=== PATIENT | male | born 1965 | race Caucasian/White ===

== ENCOUNTER 2017-08-07 22:35 | Inpatient (IN) | payer MEDICAID, SELFPAY ==
[2017-08-07 22:36] VITALS: BP 148/95; PULSE 106; RESP 18; TEMP 36.4; O2SAT 97; BMI 31.3
--- NOTE | 2017-08-07 22:59 | EKG12_ITS ---
Test Reason : CP Blood Pressure : / mmHG Vent. Rate : 106 BPM Atrial Rate : 106 BPM P-R Int : 132 ms QRS Dur : 078 ms QT Int : 358 ms P-R-T Axes : 065 068 030 degrees QTc Int : 475 ms Sinus tachycardia Otherwise normal ECG Confirmed by ALIREZA BELL, ERJI ([id number]), supervising editor trailer ERMELINDA CHAN ([id number]) on 08/11/2017 1:59:11 PM Referred By: Confirmed By:REJI LAY MD
[2017-08-07] MEDS: Ondansetron 4 MG/2 ML Vial IV (23:34)
[2017-08-07] MEDS: 0.9% Normal Saline 1,000 ML 1000 ML IV (23:34)
[2017-08-07] MEDS: LORazepam 2 MG/ML Syringe 1 MG IV (23:35)
[2017-08-07 23:37] LABS: Absolute Lymphocyte Count 1.67 X10^3/ul (0.83-4.51); Absolute Neutrophil Count 5.1 X10^3/uL (2.0-7.7); Basophil# 0.04 X10^3/uL; Basophil% 0.5 % (0-1); Eosinophil# 0.18 X10^3/uL; Eosinophils% 2.3 % (0-5); Hematocrit 34.8 % (40-54); Hemoglobin 10.7 g/dl (13.0-16.5); Lymphocyte # 1.67 X10^3/ul (4.0); Lymphocyte % 21.7 % (19-41); Mean Corp Hgb Conc 30.7 g/gl (32-36); Mean Corpuscular Hgb 25.1 pg (27.0-32.0); Mean Corpuscular Volume 81.7 fL (80-94); Mean Platelet Vol. 8.8 fl (6.2-12.0); Monocyte# 0.74 X10^3/uL; Monocyte% 9.6 % (0-10); Neutrophil # 5.07 X10^3/uL (2.7-7.7); Neutrophil % 65.8 % (47-70); Platelet Count 237 K/mm3 (150-450); RBC Distribution Width CV 19.6 % (11.6-14.6); RBC Distribution Width SD 57.8 fl (35.1-43.9); Red Blood Count 4.26 M/mm3 (4.6-6.2); White Blood Count 7.7 K/mm3 (4.4-11.0)
[2017-08-07 23:42] LABS: POSITIVE COUNT NO; POSITIVE DIFFERENTIAL NO; POSITIVE MORPHOLOGY NO
[2017-08-07 23:44] VITALS: BP 165/85; PULSE 87; RESP 20
[2017-08-07 23:49] LABS: International Normalized Ratio 1.4; Partial Thromboplast Time 32.7 Seconds (24.1-36.2); Prothrombin Time (Protime)PT. 17.1 SECONDS (11.7-14.9)
[2017-08-07 23:52] LABS: Bacteria 0 SEEN /hpf (None Seen); Color, Urine Yellow (Yellow); Glucose, Dipstick Normal (Normal); Ketone-Dipstick Negative (Negative); Leukocyte Esterase-Dipstick Negative /ul (Negative); Mucous, Urine 0 SEEN /hpf (<or=2+); Nitrite-Dipstick Negative (Negative); Occult Blood-Urine 10 /ul (Negative); Protein-Dipstick Negative (Negative); Specific Gravity, Urine 1.015 (1.002-1.030); Urine Bilirubin Dipstick Negative (Negative); Urine Clarity Clear (Clear); Urine Urobilinogen 1 mg/dl (Normal); White Blood Cells 0 SEEN /hpf (0-5)
[2017-08-07 23:59] LABS: Red Blood Cells-Urine 0-5 SEEN /hpf (0-5); Squamous Epithelial Cells - UA 0-5 SEEN /hpf (0-5)
[2017-08-08] VITALS (15 sets, daily range): BP systolic 121–157; BP diastolic 57–87; PULSE 67–87; RESP 15–18; TEMP 36.9–37.2; O2SAT 96–98; BMI 31.5
[2017-08-08 00:01] LABS: ALB/GLOB Ratio 0.7 RATIO (0.9-2.4); AST(SGOT) 83 U/L (15-37); Alanine Aminotransfer ALT/SGPT 41 U/L (16-61); Albumin, Serum 3.9 g/dL (3.2-5.0); Alkaline Phosphatase 149 U/L (45-117); Anion Gap 9 (5-15); BUN 7 mg/dL (7-18); BUN/Creat Ratio 6.2 RATIO (10-20); Calcium,Total 8.1 mg/dL (8.5-10.1); Chloride 107 mmol/L (98-107); Creatinine, Serum 1.12 mg/dL (0.70-1.30); EST Glomerular Filtration Rate 73 mL/min (>60); Est Glom Filt Rate - Afr Amer 88 mL/min (>60); Globulin 5.3 g/dL (2.2-4.2); Glucose 121 mg/dL (74-106); Potassium 3.9 mmol/L (3.5-5.1); Protein, Total 9.2 g/dL (6.4-8.2); Sodium Level 139 mmol/L (136-145)
--- NOTE | 2017-08-08 01:24 | PCM.HP.STD ---
Problem List (1) Alcohol abuse Status: Chronic (2) HTN (hypertension) Status: Chronic Qualifiers: Hypertension type: essential hypertension Qualified Code(s): I10 - Essential (primary) hypertension (3) Anemia Status: Chronic Qualifiers: Anemia type: iron deficiency Iron deficiency anemia type: unspecified iron deficiency Qualified Code(s): D50.9 - Iron deficiency anemia, unspecified (4) CL (cirrhosis of liver) Status: Chronic Qualifiers: Hepatic cirrhosis type: unspecified hepatic cirrhosis Ascites presence: without ascites Qualified Code(s): K74.60 - Unspecified cirrhosis of liver (5) Gastric ulcer Status: Chronic Qualifiers: Gastric ulcer chronicity: chronic Gastric ulcer complication status: unspecified whether hemorrhage or perforation present Qualified Code(s): K25.7 - Chronic gastric ulcer without hemorrhage or perforation (6) Insomnia Status: Chronic Qualifiers: Insomnia type: unspecified Qualified Code(s): G47.00 - Insomnia, unspecified (7) Atypical chest pain Status: Acute (8) Troponin level elevated Status: Acute (9) Alcohol withdrawal Status: Acute Qualifiers: Complication of substance-induced condition: uncomplicated Qualified Code(s): F10.230 - Alcohol dependence with withdrawal, uncomplicated History of Present Illness Date of Admission: 08/08/17 Chief Complaint: Buring in his chest, anxious, withdrawal symptoms. The patient is a 52 y/o M w/ PMHx: Obesity, EtOH Abuse (3 tall boys q HS), PUD versus Gastric Ulcer, Insomnia, Hypertension, Iron Deficiency Anemia, Vitamin B12 deficiency who presents to the [facility] ED on 08/08/17 with history of onset EtOH withdrawal symptoms with last intake 08/07/17 AM with nausea, tremors, agitation, tactile disturbances in addition to onset at ~ 8 pm on evening prior to ED presentation central chest burning sensation, heaviness w/ radiation to BL neck and BL UE regions with associated dyspnea, diaphoresis, nausea without emesis and also vague headache. In the ED patient noted symptom improvement in regard to his chest pain and following ativan 1 mg IV x 1 EtOH withdrawal symptoms also improved. In the ED work-up included T 97.5, HR 106, BP 148/95, RR 18, 97% on RA, CBC w/ WBC 7.7, Hgb 10.7, Plts 237 without shift, coags w/ PT 17.1 otherwise unremarkable, CMP w/ glucose 121, AST/ALT 83/41, Alk phos 149, trop 0.13, UA unremarkable, EKG w/ sinus tachycardia without acute evidence of ischemia. In the ED patient administered NS, zofran, ativan. Past Medical History Past Medical History (Chronic Problems): Chronic Problems Alcohol abuse (Chronic) HTN (hypertension) (Chronic) Anemia (Chronic) CL (cirrhosis of liver) (Chronic) Gastric ulcer (Chronic) Insomnia (Chronic) Allergies No Known Allergies Allergy (Verified 08/07/17 22:39) Home Medications: Ambulatory Orders Medication Instructions Recorded Lisinopril 20 mg PO DAILY 05/09/17 Activated Charcoal [Charcoal] 200 mg PO DAILY 08/07/17 Ferrous Sulfate 325 mg PO DAILY@0800 08/07/17 Cyanocobalamin [Vitamin B12] 1,000 mcg IM Q30D 08/08/17 Garlic 100 mg PO DAILY 08/08/17 Whitetail-3 Fatty Acids [Fish Oil] 500 mg PO DAILY 08/08/17 Surgical History: - - R pinky trauma w/ skin graft. Psychiatric History: No pertinent psych hx Lives: Spouse/ Significant Other Smoking Status: Never smoker Tobacco Use: Non-smoker Alcohol: Heavy - 3 tall boys q HS to help him sleep. Drugs: None Review of Systems Constitutional: Reports: Anorexia, Malaise, Weakness, Fatigue. Denies: Chills, Fever, Weight Change HEENT: Reports: Head Aches. Denies: Sinus Congestion, Sinus Drainage Cardiovascular: Reports: Chest Pain, Heaviness. Denies: Palpitations Respiratory: Denies: Cough, Shortness of breath at rest, Sputum production Gastrointestinal: Reports: Nausea. Denies: Abdominal Pain, Vomiting Genitourinary: Denies: Dysuria Musculoskeletal: Denies: Joint Pain, Joint Tenderness Skin: Denies: Rash, Wounds Neurological: Reports: Seizures. Denies: Focal weakness, Numbness, Tingling Psychiatric: Denies: Anxiety, Depression, Homicidal Ideations, Suicidal Ideations Hematologic/ Lymphatic: Reports: Anemia. Denies: Easy Bruising, Easy Bleeding VTE Information - Inpt Only VTE Present on Admission: No VTE Mechan Device Prophylaxis: SCD's VTE Pharm Prophylaxis ordered?: Yes Patient Problems: Active and Suspected Problems Atypical chest pain (Acute) Troponin level elevated (Acute) Alcohol withdrawal (Acute) Subjective: Seated upright in the ED bed, mildly agitated. Objective: Physical Examination: General: awake, alert, oriented x 3 and cooperative, seated upright in bed in no apparent distress. Skin: normal color, turgor, no icterus, cyanosis. HEENT: AT/NC, EOMI, PERRLA, dry MM, no carotid bruits or JVD noted. Lungs: CTA bilaterally, moderate effort, mild decrease BL bases, no rales, ronchi or wheezing. Heart: Regular rate and rhythm; no gallop, rub audible. Abdomen: soft, NTTP, ND, normal BS, + HM. Extremities: no cyanosis, clubbing, or edema. Neurological: patient awake, alert, oriented x 3; cognitive function intact; pupils equally reactive to light and accomodation; cranial nerves II-XII grossly normal, moving all 4 extremities, no focal deficits, mild tremor noted, strength moderately to severely globally decreased secondary to acute presentation. Psychiatric: affect appears mildly agitated, no acute evidence of depressive or anxiety feelings. - Physical Exam Vital Signs Temp Pulse Resp BP Pulse Ox 97.5 F L 87 20 H 165/85 H 97 08/07/17 22:36 08/07/17 23:44 08/07/17 23:44 08/07/17 23:44 08/07/17 22:36 Oxygen Delivery Method Room Air Weight: 212 lb Body Mass Index (BMI) 31.3 Laboratory Tests Past 24 Hrs 08/07/17 08/07/17 08/07/17 23:23 23:23 23:23 WBC 7.7 RBC 4.26 L Hgb 10.7 L Hct 34.8 L MCV 81.7 MCH 25.1 L MCHC 30.7 L RDW 19.6 H RDW Differential 57.8 H Plt Count 237 MPV 8.8 Immature Gran % (Auto) 0.100 Neut % (Auto) 65.8 Lymph % (Auto) 21.7 Lamoure % (Auto) 9.6 Eos % (Auto) 2.3 Baso % (Auto) 0.5 Absolute Neuts (auto) 5.1 Absolute Lymphs (auto) 1.67 Total Counted Not Reportable PT 17.1 H INR 1.4 APTT 32.7 Sodium 139 Potassium 3.9 Chloride 107 Carbon Dioxide 23.0 Anion Gap 9 BUN 7 Creatinine 1.12 Estim Creat Clear Calc 75.40 Est GFR (MDRD) Af Amer 88 Est GFR (MDRD) Non-Af 73 BUN/Creatinine Ratio 6.2 L Glucose 121 H Calcium 8.1 L Total Bilirubin 0.80 AST 83 H ALT 41 Alkaline Phosphatase 149 H Troponin I 0.13 H Total Protein 9.2 H Albumin 3.9 Globulin 5.3 H Albumin/Globulin Ratio 0.7 L Urine Color Urine Clarity Urine pH Ur Specific Wendell Urine Protein Urine Glucose (UA) Urine Ketones Urine Occult Blood Urine Nitrite Urine Bilirubin Urine Urobilinogen Ur Leukocyte Esterase Urine RBC Urine WBC Ur Squamous Epith Cells Urine Bacteria Urine Mucus Ethyl Alcohol 08/07/17 08/07/17 23:23 23:45 WBC RBC Hgb Hct MCV MCH MCHC RDW RDW Differential Plt Count MPV Immature Gran % (Auto) Neut % (Auto) Lymph % (Auto) Lamoure % (Auto) Eos % (Auto) Baso % (Auto) Absolute Neuts (auto) Absolute Lymphs (auto) Total Counted PT INR APTT Sodium Potassium Chloride Carbon Dioxide Anion Gap BUN Creatinine Estim Creat Clear Calc Est GFR (MDRD) Af Amer Est GFR (MDRD) Non-Af BUN/Creatinine Ratio Glucose Calcium Total Bilirubin AST ALT Alkaline Phosphatase Troponin I Total Protein Albumin Globulin Albumin/Globulin Ratio Urine Color Yellow Urine Clarity Clear Urine pH 6.0 Ur Specific Wendell 1.015 Urine Protein Negative Urine Glucose (UA) Normal Urine Ketones Negative Urine Occult Blood 10 H Urine Nitrite Negative Urine Bilirubin Negative Urine Urobilinogen 1 H Ur Leukocyte Esterase Negative Urine RBC 0-5 SEEN Urine WBC 0 SEEN Ur Squamous Epith Cells 0-5 SEEN Urine Bacteria 0 SEEN Urine Mucus 0 SEEN Ethyl Alcohol 11.0 Assessment/Plan Active and Suspected Problems Atypical chest pain (Acute) Troponin level elevated (Acute) Alcohol withdrawal (Acute) The patient is a 52 y/o M w/ PMHx: Obesity, EtOH Abuse (3 tall boys q HS), PUD versus Gastric Ulcer, Insomnia, Hypertension, Iron Deficiency Anemia, Vitamin B12 deficiency who presents to the [facility] ED on 08/08/17 with history of onset EtOH withdrawal symptoms with last intake 08/07/17 AM with nausea, tremors, agitation, tactile disturbances in addition to onset at ~ 8 pm on evening prior to ED presentation central chest burning sensation, heaviness w/ radiation to BL neck and BL UE regions with associated dyspnea, diaphoresis, nausea without emesis and also vague headache. (1) Chest Pain: EKG in ED SR without acute evidence of ischemia, CXR w/ no acute findings, initial trop elevated 0.10. Will admit to PCU, place on a monitored bed to assure no acute myocardial infarction with serial cardiac enzymes and EKGs. Will trend cardiac enzymes and if remain similar will plan to proceed with AM Nuclear stress testing; however, if increase further will plan Cardiology assessment. Add low dose coreg given HTN, add statin w/ AM FLP. ASA, NG, morphine. Mag pending. (2) Acute EtOH Withdrawal: Patient upon ED presentation noted interest in EtOH withdrawal treatment, last intake AM prior to day of presentation w/ noted usually 3 tall boys q HS secondary to his insomnia. Will urine for drug screen, will initiate and continue on [facility] service protocol with taper course of librium as needed Seroquel, Catapres, Bentyl, Vistaril, IV fluids, IV antiemetics, Tylenol as needed for pain. Once patient clinically improved and completion of taper nearing will plan [facility] assistance for transition to next level of rehabilitation care. Mag, phos pending. Maintain on CIWA protocol. (3) Elevated LFTs, ? Recent Dx Cirrhosis: Admission AST/ALT 83/41, pending hepatitis panel, liver US ordered, pending. (4) Hyperglycemia: Admission glucose 121, HgbA1c pending. (5) Insomnia: Notes the reason for his q HS notable ETOH intake history, as noted treating for acute withdrawal and qHS trazodone in addition to PRN seroquel. Will benefit from CM evaluation and [facility] to transition to outpatient counseling and psych evaluation. (6) Normocytic Anemia, Chronic: Notes recent evaluation per his PCP w/ confirmation Fe deficiency anemia as well as vitamin B 12 deficiency with recent start on supplementation. Will obtain additional folic acid level. (7) Hx ?PUD versus Gastric Ulcer: Notes history ~ 1 year prior ulcer, maintain on protonix and carafate added especially given baby ASA usage as noted. (8) Hypertension: Continue home regimen including lisinopril, add low-dose Coreg, PRN hydralazine. (9) GERD: Maintain on famotidine. (10) DVT prophylaxis: SCDs, Lovenox. Code Visit Inpatient E&M: 16275 Init Hosp L3
--- NOTE | 2017-08-08 01:51 | ED.VISSUMM ---
- ER Visit Summary Date of Service: 08/08/17 Chief Complaint: Shakiness and chest burning History of Present Illness: The patient is a 52 M who presents with chest burning and shakiness that began today. Patient states he has some burning sensation in the anterior chest. Patient also states he has some burning in his left arm. Patient states nothing seems to make this better or worse. Patient states he feels shaky tonight. Patient states he normally drinks 3 tall boys to help him sleep. Patient states his last drink was this morning. Patient admits to some nausea but denies any vomiting. Patient admits to subjective fevers. Patient denies any diarrhea. Patient states he was on Ambien in the past but stopped taking that. Patient states he now drinks 3 tall boys to help him sleep instead of taking Ambien. Physical Examination: Vital signs showed a mild tachycardia of 106. The remaining vital signs are stable. Patient is in no acute distress. Patient is afebrile. Oral mucosa is pink and moist. Neck is supple. Trachea is midline. Is no JVD or lymphadenopathy. Heart was regular and tachycardic. Lungs are clear and equal bilaterally. Abdomen soft. There is mild tenderness over the epigastric area. There is no rebound or guarding noted. Cranial nerves II through XII are intact. There are no focal motor or sensory deficits noted. Patient does have an anxious mood. The remaining physical exam is within normal limits. Test Results: EKG showed sinus tachycardia with a rate of 106. There are no acute ST or T-wave changes. There are no prior EKGs available for comparison. Serum alcohol level was 11. CBC showed a mild anemia with a hemoglobin of 10.7. Urinalysis was within normal limits. Comprehensive metabolic profile was essentially within normal limits. Troponin was indeterminate at 0.13. Emergency Department Course and Treatment: Patient was given IV fluids and Ativan here. Patient felt better on reevaluation patient's heart rate improved. Case was discussed with Dr. Grayson. She will admit the patient to her service. Patient understood and was agreeable with the plan. All questions were answered. Disposition: Admitted to the hospital Impression: Atypical chest pain, indeterminate troponin, alcohol withdrawal This note was generated with [employer] dictation software. It may contain incorrect words, spelling, and punctuation that were not noted in review of the chart prior to signing ED Disposition - Plan for ED Patient: Disposition: Acute [facility] Chief Complaint: General Illness Diagnosis: Atypical chest pain, Troponin level elevated, Alcohol withdrawal Referrals: Nestor Whitfield MD [Primary Care Provider] -
--- NOTE | 2017-08-08 01:58 | ED.DCSUM_ITS ---
- ER Visit Summary Date of Service: 08/08/17 Chief Complaint: Shakiness and chest burning History of Present Illness: The patient is a 52 M who presents with chest burning and shakiness that began today. Patient states he has some burning sensation in the anterior chest. Patient also states he has some burning in his left arm. Patient states nothing seems to make this better or worse. Patient states he feels shaky tonight. Patient states he normally drinks 3 tall boys to help him sleep. Patient states his last drink was this morning. Patient admits to some nausea but denies any vomiting. Patient admits to subjective fevers. Patient denies any diarrhea. Patient states he was on Ambien in the past but stopped taking that. Patient states he now drinks 3 tall boys to help him sleep instead of taking Ambien. Physical Examination: Vital signs showed a mild tachycardia of 106. The remaining vital signs are stable. Patient is in no acute distress. Patient is afebrile. Oral mucosa is pink and moist. Neck is supple. Trachea is midline. Is no JVD or lymphadenopathy. Heart was regular and tachycardic. Lungs are clear and equal bilaterally. Abdomen soft. There is mild tenderness over the epigastric area. There is no rebound or guarding noted. Cranial nerves II through XII are intact. There are no focal motor or sensory deficits noted. Patient does have an anxious mood. The remaining physical exam is within normal limits. Test Results: EKG showed sinus tachycardia with a rate of 106. There are no acute ST or T-wave changes. There are no prior EKGs available for comparison. Serum alcohol level was 11. CBC showed a mild anemia with a hemoglobin of 10.7. Urinalysis was within normal limits. Comprehensive metabolic profile was essentially within normal limits. Troponin was indeterminate at 0.13. Emergency Department Course and Treatment: Patient was given IV fluids and Ativan here. Patient felt better on reevaluation patient's heart rate improved. Case was discussed with Dr. Grayson. She will admit the patient to her service. Patient understood and was agreeable with the plan. All questions were answered. Disposition: Admitted to the hospital Impression: Atypical chest pain, indeterminate troponin, alcohol withdrawal This note was generated with [employer] dictation software. It may contain incorrect words, spelling, and punctuation that were not noted in review of the chart prior to signing ED Disposition - Plan for ED Patient: Disposition: Acute [facility] Chief Complaint: General Illness Diagnosis: Atypical chest pain, Troponin level elevated, Alcohol withdrawal Referrals: Nestor Whitfield MD [Primary Care Provider] -
[2017-08-08] MEDS: Lactated Ringers 1,000 ML 125 ML IV (03:23)
[2017-08-08] MEDS: LORazepam 1 MG Tablet 2 MG PO (03:39)
[2017-08-08] MEDS: Acetaminophen 500 MG Tablet PO (03:39)
[2017-08-08] MEDS: Ondansetron 4 MG/2 ML Vial IV (03:40)
[2017-08-08 03:53] LABS: Amphetamine Urine VISTA NEGATIVE (<1000 ng/mL); Barbiturate Urine VISTA NEGATIVE (< 200 ng/mL); Benzodiazepine Urine VISTA NEGATIVE (< 200 ng/mL); Cocaine Urine VISTA NEGATIVE (< 300 ng/mL); Ecstacy Urine VISTA NEGATIVE (< 500 ng/mL); Methadone Urine VISTA NEGATIVE (< 300 ng/mL); PCP Urine VISTA NEGATIVE (< 25 ng/mL); THC Urine VISTA POSITIVE (< 50 ng/mL); Vista UDS pH Range 6
[2017-08-08 04:04] LABS: Magnesium 2.3 mg/dL (1.6-2.6); Phosphorus 2.2 mg/dL (2.5-4.9)
[2017-08-08 04:09] LABS: ALB/GLOB Ratio 0.7 RATIO (0.9-2.4); AST(SGOT) 74 U/L (15-37); Alanine Aminotransfer ALT/SGPT 37 U/L (16-61); Albumin, Serum 3.5 g/dL (3.2-5.0); Alkaline Phosphatase 125 U/L (45-117); Anion Gap 8 (5-15); BUN 7 mg/dL (7-18); BUN/Creat Ratio 7.3 RATIO (10-20); Calcium,Total 7.9 mg/dL (8.5-10.1); Chloride 108 mmol/L (98-107); Cholesterol 149 mg/dL (200); Creatinine, Serum 0.96 mg/dL (0.70-1.30); EST Glomerular Filtration Rate 87 mL/min (>60); Est Glom Filt Rate - Afr Amer 105 mL/min (>60); Estimated Creatinine Clearance 87.97 ml/min; Globulin 4.7 g/dL (2.2-4.2); Glucose 104 mg/dL (74-106); High Density Lipoprotein 17 mg/dL; Potassium 3.8 mmol/L (3.5-5.1); Protein, Total 8.2 g/dL (6.4-8.2); Sodium Level 139 mmol/L (136-145); Triglycerides 215 mg/dL; Very Low Density Lipoprotein 43 mg/dL (5-40)
[2017-08-08 04:56] LABS: Hemoglobin A1c 6.3 % (4.2-6.3)
[2017-08-08] MEDS: 0.9% NaCl Peripheral Flush Adult/Peds IV (05:33)
[2017-08-08] MEDS: Aspirin E.C. 81 MG Tablet PO (05:34)
[2017-08-08] MEDS: Lisinopril 20 MG Tablet PO (05:34)
[2017-08-08 05:53] LABS: Absolute Lymphocyte Count 1.79 X10^3/ul (0.83-4.51); Absolute Neutrophil Count 5.2 X10^3/uL (2.0-7.7); Basophil# 0.04 X10^3/uL; Basophil% 0.5 % (0-1); Eosinophil# 0.18 X10^3/uL; Eosinophils% 2.3 % (0-5); Hematocrit 31.8 % (40-54); Hemoglobin 9.6 g/dl (13.0-16.5); Lymphocyte # 1.79 X10^3/ul (4.0); Mean Corp Hgb Conc 30.2 g/gl (32-36); Mean Corpuscular Hgb 24.9 pg (27.0-32.0); Mean Corpuscular Volume 82.6 fL (80-94); Monocyte# 0.57 X10^3/uL; Monocyte% 7.3 % (0-10); Neutrophil % 66.8 % (47-70); Platelet Count 211 K/mm3 (150-450); RBC Distribution Width CV 19.6 % (11.6-14.6); Red Blood Count 3.85 M/mm3 (4.6-6.2); White Blood Count 7.8 K/mm3 (4.4-11.0)
--- NOTE | 2017-08-08 05:55 | US_ITS ---
STUDY: ABDOMINAL ULTRASOUND - RIGHT UPPER QUADRANT REASON FOR VISIT: Male, 52 years old. Elevated LFTs. TECHNIQUE: Ultrasound evaluation of the right upper quadrant was performed with real-time and static armenta-scale imaging. TECHNICAL QUALITY: Adequate. COMPARISON: None. FINDINGS: Liver: The liver measures 18 cm. There is a heterogeneous echogenicity of the liver. The bile ducts are within normal limits. There is hepatic color flow. The direction of portal flow is hepatopetal. There is a hypoechoic region within the right hepatic lobe consistent with cyst measuring 9 x 7 x 7 mm. Gallbladder: Normal distended gallbladder. The gallbladder wall measures 4 mm. There is a negative sonographic Carroll's sign. There is no pericholecystic fluid. Anterior wall gallbladder polyp is present measuring 6 x 3 x 4 mm. Common Bile Duct (C.B.D.): The common bile duct measures 5 mm. Pancreas: Head and body are visualized however the tail is obscured by overlying gas. There is increased echogenicity of the pancreas. There is no demonstrated pancreatic mass or cyst. Right Kidney: Normal size of the right kidney. The right kidney measures 12.7 x 5.0 x 4.0 cm. Normal renal cortex. The right cortex measures 1.0 cm. There is no demonstrated renal mass or cyst. There is no right hydronephrosis. There is a focal hyperechoic region within the mid right kidney measuring 1.2 x 1.1 x 0.7 cm with nonobstructive nephrolith not excluded. US/Liver IMPRESSION: 1. Heterogeneous hepatomegaly with small right hepatic cyst. No evidence of focal lesion. 2. Gallbladder polyp as above. 3. Hyperechoic mid right renal region concerning for nonobstructing nephrolith as above. Electronically Signed: Silvestre Hough DO at 9:21 EDT , Service support ,
--- NOTE | 2017-08-08 05:55 | EKG12_ITS ---
Test Reason : AM EKG Blood Pressure : / mmHG Vent. Rate : 073 BPM Atrial Rate : 073 BPM P-R Int : 140 ms QRS Dur : 084 ms QT Int : 414 ms P-R-T Axes : 044 057 038 degrees QTc Int : 456 ms Normal sinus rhythm Normal ECG When compared with ECG of 07-AUG-2017 22:45, MANUAL COMPARISON REQUIRED, DATA IS UNCONFIRMED Confirmed by OUMAR TOPETE ([id number]), communications editor ERMELINDA CHAN ([id number]) on 08/13/2017 3:02:07 PM Referred By: DR ROBBINS Confirmed By:OUMAR TOPETE
[2017-08-08 05:59] LABS: International Normalized Ratio 1.5; Prothrombin Time (Protime)PT. 18.3 SECONDS (11.7-14.9)
[2017-08-08 06:00] LABS: Partial Thromboplast Time 32.5 Seconds (24.1-36.2)
[2017-08-08 06:21] LABS: POSITIVE COUNT NO; POSITIVE DIFFERENTIAL NO; POSITIVE MORPHOLOGY NO
[2017-08-08 06:22] LABS: Anion Gap 7 (5-15); BUN 7 mg/dL (7-18); BUN/Creat Ratio 7.4 RATIO (10-20); Chloride 107 mmol/L (98-107); Creatinine, Serum 0.95 mg/dL (0.70-1.30); EST Glomerular Filtration Rate 88 mL/min (>60); Est Glom Filt Rate - Afr Amer 106 mL/min (>60); Estimated Creatinine Clearance 88.89 ml/min; Glucose 100 mg/dL (74-106); Potassium 3.7 mmol/L (3.5-5.1); Sodium Level 139 mmol/L (136-145)
[2017-08-08] MEDS: Multivitamins,Ther W-Minerals Tablet 1 TABLET PO (11:34)
[2017-08-08] MEDS: Ferrous Sulfate 325 MG Tablet PO (11:34)
[2017-08-08] MEDS: Pantoprazole Sodium 40 MG Tablet PO ×2 (11:34→21:43)
[2017-08-08] MEDS: Sucralfate 1 GM Tablet PO ×3 (11:34→21:43)
[2017-08-08] MEDS: Folic Acid 1 MG Tablet PO (11:35)
[2017-08-08] MEDS: Thiamine Hydrochloride 100 MG Tablet PO (11:35)
[2017-08-08] MEDS: Enoxaparin 40 MG/0.4 ML Syringe SC (11:35)
[2017-08-08] MEDS: Carvedilol 3.125 MG TABLET PO ×2 (11:35→21:43)
[2017-08-08] MEDS: chlordiazePOXIDE 25 MG Capsule PO ×3 (11:39→20:00)
--- NOTE | 2017-08-08 11:42 | STRESSREP_ITS ---
Stress Test Report Pharmacologic myocardial perfusion stress test. 52-year-old man with a history of alcohol abuse and chest pain. Stress protocol: Resting EKG demonstrates normal sinus rhythm with a rate of 71 bpm normal intervals and noted resting blood pressure is 142/82 mmHg. 0.4 mg of regadenoson was infused per usual protocol followed by rapid intravenous saline flush injection. Continuous EKG monitoring was performed. The patient maintained sinus rhythm throughout the recording. At rest there were no ST or T -wave changes noted suggest ischemia at peak infusion no ST or T-wave changes were noted suggest ischemia. The resting blood pressure is 142/82 with a final blood pressure 148/70 mmHg. Myocardial perfusion protocol: 13.9 mCi of technetium 99m sestamibi was injected at rest. 0.4 mg of regadenoson was infused per usual protocol. Peak infusion 41.5 mCi of technetium 99m sestamibi was injected stress images were obtained stress and rest images were reconstructed and compared in the short axis vertical long and horizontal long axis. Gated images were also obtained. Perfusion SPECT analysis: Review of the stress images demonstrate normal uptake of tracer noted in all areas of the myocardium. The resting images similarly demonstrate normal uptake of tracer noted in all areas of myocardium. No areas of reversibility are noted suggest ischemia. Gated SPECT analysis: The gated ejection fraction is noted to be 75%. Conclusion: Normal pharmacologic myocardial perfusion stress test. Preserved ejection fraction.
--- NOTE | 2017-08-08 14:45 | CASEMGMT ---
Social Work Unit - PCU Consult: Substance abuse Informant: medical record and patient himself Summary: Patient reports history of drinking, for which patient perceives as problematic, since 2009. Patient attributes alcohol use due to insomnia issues. Patient endorses chronic insomnia issues, for which has used Ambien, trazodone, and other medications through the years. Patient reports when stopped Ambien, the alcohol usage increased. Patient reports for the last month or so has been drinking 3 tall boy beers a night, waking up in the middle of the night and drinking 3 more tall boys. Patient endorses a history of marijuana usage, 15 years ago, but when social media developer discussed positive drug screen for this substance at time of admission the patient reported that was talked into using one time in the last month or two. Patient reports use was to help with pain issues. Patient reports just cannot believe that allowed self to be influenced by others. Patient denies other illicit drug use or abuse issues, denies prescription abuse issues. Patient reports to feel depressed, denies any thoughts, plans, intent for suicide however. Patient reports ability to keep a job has become problematic, and hence finances are more limited. Patient reports filionel of 22 years has been supportive, but this relationship has also become strained. Patient reports that just wants to make some change in life for the better. Patient denies any history of 12 step or formal treatment/counseling. Patient reports would be open to referrals and to resources. Patient talkative, tearful, and with a sad mood during social work visit. Patient reports desire to make change in life and wish to get link with supportive services. Patient expressed thanks for time given in allowing patient to talk about issues/concerns. Interventions: Discussed local options for substance use and mental health treatment, [facility] (for fiance), food/meal pantries in the area, and at patient's request information on dental clinics. Educated patient that hospital does work with [facility], an agency assisting in detox, and that a customer engagement representative may be able to see patine on Thursday to further discuss resources. Patient agreeable. Plan: Social work to follow. Handoff report to RAFAL De La Rosa for PCU, of patient's interest in referrals and having some resources for home going. -CELSO Negrete, GEOSPATIAL ANALYST
--- NOTE | 2017-08-08 20:57 | PN_ITS ---
Patient Problems: Active and Suspected Problems Atypical chest pain (Acute) Troponin level elevated (Acute) Alcohol withdrawal (Acute) Subjective: He feels better. He is c/o mild abdominal discomfort, but he is eating well. Stress test negative. He has no more chest pain. - Physical Exam General: Alert, Oriented x3, Well developed HEENT: Atraumatic, PERRLA, Normocephalic Oral: Moist Mucosa Neck: Supple, No JVD, Negative Carotid Bruits Lungs: Clear to auscultation, Normal air movement, No rhonchi, No wheeze, No rales Cardiovascular: Regular rate, Regular Rhythm, Normal S1, Normal S2, No murmurs, No Ectopic Activity Abdomen: Bowel Sounds Present, Soft, Non Tender, Non-Distended, No Hepato- splenomegaly Extremities: No clubbing, No cyanosis, No edema Skin: No rashes, No breakdown Musculoskeletal: No Tenderness to Palpation of Joints or Extremities, No Muscle Wasting Lymphatic: No Cervical, Supraclavicular, or Inguinal Adenopathy Neurological: Cranial nerves II-XII grossly intact, Neuro grossly intact, - - No tremor Psych/Mental Status: Flat Affect Vital Signs Temp Pulse Resp BP Pulse Ox 98.4 F 67 15 148/73 H 97 08/08/17 20:03 08/08/17 20:03 08/08/17 20:03 08/08/17 20:03 08/08/17 20:03 Oxygen Delivery Method Room Air Weight: 213 lb 6.519 oz Body Mass Index (BMI) 31.5 Intake and Output for Last 24 Hours 08/06/17 08/07/17 08/08/17 23:59 23:59 23:59 Intake Total 1766 / 1766 Output Total 0 / 0 Balance 1766 / 1766 Laboratory Tests Past 24 Hrs 08/08/17 08/08/17 08/08/17 03:20 03:20 03:20 WBC RBC Hgb Hct MCV MCH MCHC RDW RDW Differential Plt Count MPV Immature Gran % (Auto) Neut % (Auto) Lymph % (Auto) O'Brien % (Auto) Eos % (Auto) Baso % (Auto) Absolute Neuts (auto) Absolute Lymphs (auto) Total Counted PT INR APTT Sodium 139 Potassium 3.8 Chloride 108 H Carbon Dioxide 23.0 Anion Gap 8 BUN 7 Creatinine 0.96 Estim Creat Clear Calc 87.97 Est GFR (MDRD) Af Amer 105 Est GFR (MDRD) Non-Af 87 BUN/Creatinine Ratio 7.3 L Glucose 104 Calcium 7.9 L Ionized Calcium Total Bilirubin 0.60 AST 74 H ALT 37 Alkaline Phosphatase 125 H Troponin I 0.11 H Total Protein 8.2 Albumin 3.5 Globulin 4.7 H Albumin/Globulin Ratio 0.7 L Triglycerides 215 H Cholesterol 149 LDL Cholesterol 89 VLDL Cholesterol 43 H HDL Cholesterol 17 L Hepatitis A IgM Ab Pending Hepatitis A Ab Total Pending Hep Bs Antigen Pending Hep B Core Total Ab Pending Hep B Core IgM Ab Pending Hepatitis C Comment Pending 08/08/17 08/08/17 08/08/17 05:36 05:36 05:36 WBC 7.8 RBC 3.85 L Hgb 9.6 L Hct 31.8 L MCV 82.6 MCH 24.9 L MCHC 30.2 L RDW 19.6 H RDW Differential 57.0 H Plt Count 211 MPV 9.0 Immature Gran % (Auto) 0.100 Neut % (Auto) 66.8 Lymph % (Auto) 23.0 O'Brien % (Auto) 7.3 Eos % (Auto) 2.3 Baso % (Auto) 0.5 Absolute Neuts (auto) 5.2 Absolute Lymphs (auto) 1.79 Total Counted Not Reportable PT 18.3 H INR 1.5 APTT 32.5 Sodium 139 Potassium 3.7 Chloride 107 Carbon Dioxide 25.0 Anion Gap 7 BUN 7 Creatinine 0.95 Estim Creat Clear Calc 88.89 Est GFR (MDRD) Af Amer 106 Est GFR (MDRD) Non-Af 88 BUN/Creatinine Ratio 7.4 L Glucose 100 Calcium 8.0 L Ionized Calcium Total Bilirubin AST ALT Alkaline Phosphatase Troponin I Total Protein Albumin Globulin Albumin/Globulin Ratio Triglycerides Cholesterol LDL Cholesterol VLDL Cholesterol HDL Cholesterol Hepatitis A IgM Ab Hepatitis A Ab Total Hep Bs Antigen Hep B Core Total Ab Hep B Core IgM Ab Hepatitis C Comment 08/08/17 08/08/17 08/08/17 07:58 13:20 13:20 WBC RBC Hgb Hct MCV MCH MCHC RDW RDW Differential Plt Count MPV Immature Gran % (Auto) Neut % (Auto) Lymph % (Auto) O'Brien % (Auto) Eos % (Auto) Baso % (Auto) Absolute Neuts (auto) Absolute Lymphs (auto) Total Counted PT INR APTT Sodium Potassium Chloride Carbon Dioxide Anion Gap BUN Creatinine Estim Creat Clear Calc Est GFR (MDRD) Af Amer Est GFR (MDRD) Non-Af BUN/Creatinine Ratio Glucose Calcium Ionized Calcium Pending Total Bilirubin AST ALT Alkaline Phosphatase Troponin I 0.11 H 0.11 H Total Protein Albumin Globulin Albumin/Globulin Ratio Triglycerides Cholesterol LDL Cholesterol VLDL Cholesterol HDL Cholesterol Hepatitis A IgM Ab Hepatitis A Ab Total Hep Bs Antigen Hep B Core Total Ab Hep B Core IgM Ab Hepatitis C Comment Diagnostic Data Liver Ultrasound 08/08/17 05:55 IMPRESSION: 1. Heterogeneous hepatomegaly with small right hepatic cyst. No evidence of focal lesion. 2. Gallbladder polyp as above. 3. Hyperechoic mid right renal region concerning for nonobstructing nephrolith as above. Electronically Signed: Silvestre Hough DO at 9:21 EDT , Service support , Medical Necessity - Tobacco Use Smoking Status: Never smoker Tobacco Use: Non-smoker Assessment/Plan Active and Suspected Problems Atypical chest pain (Acute) Troponin level elevated (Acute) Alcohol withdrawal (Acute) The patient is a 52 y/o M w/ PMHx: Obesity, EtOH Abuse (3 tall boys q HS), PUD versus Gastric Ulcer, Insomnia, Hypertension, Iron Deficiency Anemia, Vitamin B12 deficiency who presents to the [facility] ED on 08/08/17 with history of onset EtOH withdrawal symptoms with last intake 08/07/17 AM with nausea, tremors, agitation , tactile disturbances in addition to onset at ~ 8 pm on evening prior to ED presentation central chest burning sensation, heaviness w/ radiation to BL neck and BL UE regions with associated dyspnea, diaphoresis, nausea without emesis and also vague headache. (1) Chest Pain: Serial enzymes were negative. He underwent pharmacological myocardial perfusion scan, which was negative. Chest pain symptoms possibly from GI origin. Add PPI po for probable alcoholic gastritis. He has marginally elevated troponin of unclear significance, which has been stable around 0.11 to 0.13. (2) Acute EtOH Withdrawal: Patient upon ED presentation noted interest in EtOH withdrawal treatment, last intake AM prior to day of presentation w/ noted usually 3 tall boys q HS secondary to his insomnia. Will urine for drug screen, will initiate and continue on [facility] service protocol with taper course of librium as needed Seroquel, Catapres, Bentyl, Vistaril, IV fluids, IV antiemetics, Tylenol as needed for pain. Once patient clinically improved and completion of taper nearing will plan [facility] assistance for transition to next level of rehabilitation care. Mag, phos pending. Maintain on CIWA protocol. (3) Elevated LFTs. patient reports recent diagnosis of cirrhosis. US of liver in 08/08 showed increased heterogeneous echogenicity with hepatomegaly. Portal vein has hepatopetal, that is normal flow. He may have underling cirrhosis, but fatty liver may be more consistent with hepatomegaly. He has some degree of hepatic insufficiency, as evident by elevated PT/PTT, but he has normal albumin. (4) Hyperglycemia: Admission glucose 121, HgbA1c pending. (5) Insomnia: Notes the reason for his q HS notable ETOH intake history, as noted treating for acute withdrawal and qHS trazodone in addition to PRN seroquel. Will benefit from CM evaluation and [facility] to transition to outpatient counseling and psych evaluation. (6) Normocytic Anemia, Chronic: Notes recent evaluation per his PCP w/ confirmation Fe deficiency anemia as well as vitamin B 12 deficiency with recent start on supplementation. Will obtain additional folic acid level. (7) Hx ?PUD versus Gastric Ulcer: Notes history ~ 1 year prior ulcer, maintain on protonix and carafate added especially given baby ASA usage as noted. (8) Hypertension: Continue home regimen including lisinopril, add low-dose Coreg , PRN hydralazine. (9) GERD: Add PPI po. (10) DVT prophylaxis: SCDs, Lovenox. Code Visit Inpatient E&M: 43190 Subs Hosp L3
[2017-08-08] MEDS: Atorvastatin Calcium 80 MG Tablet PO (21:43)
[2017-08-08] MEDS: traZODone 50 MG Tablet PO (21:43)
[2017-08-09] VITALS (11 sets, daily range): BP systolic 117–132; BP diastolic 60–70; PULSE 60–87; RESP 15–16; TEMP 36.7–37.1; O2SAT 95–97
[2017-08-09] MEDS: Acetaminophen 500 MG Tablet PO ×3 (01:25→22:28)
[2017-08-09] MEDS: chlordiazePOXIDE 25 MG Capsule PO ×3 (03:37→18:51)
[2017-08-09] MEDS: Sucralfate 1 GM Tablet PO ×4 (06:16→22:22)
[2017-08-09] MEDS: Ferrous Sulfate 325 MG Tablet PO (08:36)
[2017-08-09] MEDS: Folic Acid 1 MG Tablet PO (08:36)
[2017-08-09] MEDS: Multivitamins,Ther W-Minerals Tablet 1 TABLET PO (08:36)
[2017-08-09] MEDS: Thiamine Hydrochloride 100 MG Tablet PO (08:36)
[2017-08-09] MEDS: Aspirin E.C. 81 MG Tablet PO (08:36)
[2017-08-09] MEDS: Pantoprazole Sodium 40 MG Tablet PO ×2 (10:06→22:23)
[2017-08-09] MEDS: Carvedilol 3.125 MG TABLET PO ×2 (10:06→22:22)
[2017-08-09] MEDS: Lisinopril 20 MG Tablet PO (10:07)
[2017-08-09 14:06] LABS: HEPATITIS B SURFACE AG Negative (Negative); Hepatitis A AB, Total Positive (Negative); Hepatitis A IgM Antibody Negative (Negative); Hepatitis B Core AB IgM Negative (Negative); Hepatitis B Core Ab Total Negative (Negative); Hepatitis C Ab <0.1 s/co ratio (0.0-0.9)
--- NOTE | 2017-08-09 19:26 | PCM.PROGNOTE ---
Patient Problems: Active and Suspected Problems Atypical chest pain (Acute) Troponin level elevated (Acute) Alcohol withdrawal (Acute) Subjective: Patient is feeling well. He is awake, ambulating. CIWA=0. - Physical Exam General: Alert, Oriented x3, Well developed HEENT: Atraumatic, PERRLA, Normocephalic Oral: Moist Mucosa Neck: Supple, No JVD, Negative Carotid Bruits Lungs: Clear to auscultation, Normal air movement, No rhonchi, No wheeze, No rales Cardiovascular: Regular rate, Regular Rhythm, Normal S1, Normal S2, No murmurs, No Ectopic Activity Abdomen: Bowel Sounds Present, Soft, Non Tender, Non-Distended, No Hepato-splenomegaly Extremities: No clubbing, No cyanosis, No edema Skin: No rashes, No breakdown Musculoskeletal: No Tenderness to Palpation of Joints or Extremities, No Muscle Wasting Lymphatic: No Cervical, Supraclavicular, or Inguinal Adenopathy Neurological: Cranial nerves II-XII grossly intact, Neuro grossly intact, - - No tremor Psych/Mental Status: Flat Affect - Physical Exam Vital Signs Temp Pulse Resp BP Pulse Ox 98.4 F 62 16 117/60 95 08/09/17 14:25 08/09/17 15:17 08/09/17 14:25 08/09/17 14:25 08/09/17 14:25 Oxygen Delivery Method Room Air Weight: 213 lb 6.519 oz Body Mass Index (BMI) 31.5 Intake and Output for Last 24 Hours 08/07/17 08/08/17 08/09/17 23:59 23:59 23:59 Intake Total 1766 / 1766 1097 / 1097 Output Total 0 / 0 Balance 1766 / 1766 1097 / 1097 Diagnostic Data Liver Ultrasound 08/08/17 05:55 IMPRESSION: 1. Heterogeneous hepatomegaly with small right hepatic cyst. No evidence of focal lesion. 2. Gallbladder polyp as above. 3. Hyperechoic mid right renal region concerning for nonobstructing nephrolith as above. Electronically Signed: Silvestre Hough DO at 9:21 EDT , Service support , Medical Necessity - Tobacco Use Smoking Status: Never smoker Tobacco Use: Non-smoker Assessment/Plan Active and Suspected Problems Atypical chest pain (Acute) Troponin level elevated (Acute) Alcohol withdrawal (Acute) The patient is a 52 y/o M w/ PMHx: Obesity, EtOH Abuse (3 tall boys q HS), PUD versus Gastric Ulcer, Insomnia, Hypertension, Iron Deficiency Anemia, Vitamin B12 deficiency who presents to the [facility] ED on 08/08/17 with history of onset EtOH withdrawal symptoms with last intake 08/07/17 AM with nausea, tremors, agitation, tactile disturbances in addition to onset at ~ 8 pm on evening prior to ED presentation central chest burning sensation, heaviness w/ radiation to BL neck and BL UE regions with associated dyspnea, diaphoresis, nausea without emesis and also vague headache. (1) Chest Pain: Serial enzymes were negative. He underwent pharmacological myocardial perfusion scan, which was negative. Chest pain symptoms possibly from GI origin. Add PPI po for probable alcoholic gastritis. He has marginally elevated troponin of unclear significance, which has been stable around 0.11 to 0.13. (2) Acute EtOH Withdrawal: Patient upon ED presentation noted interest in EtOH withdrawal treatment, last intake AM prior to day of presentation w/ noted usually 3 tall boys q HS secondary to his insomnia. Will urine for drug screen, will initiate and continue on [facility] service protocol with taper course of librium as needed Seroquel, Catapres, Bentyl, Vistaril, IV fluids, IV antiemetics, Tylenol as needed for pain. Once patient clinically improved and completion of taper nearing will plan [facility] assistance for transition to next level of rehabilitation care. Mag, phos pending. Maintain on CIWA protocol. (3) Elevated LFTs. patient reports recent diagnosis of cirrhosis. US of liver in 08/08 showed increased heterogeneous echogenicity with hepatomegaly. Portal vein has hepatopetal, that is normal flow. He may have underling cirrhosis, but fatty liver may be more consistent with hepatomegaly. He has some degree of hepatic insufficiency, as evident by elevated PT/PTT, but he has normal albumin. (4) Hyperglycemia: Admission glucose 121, HgbA1c pending. (5) Insomnia: Notes the reason for his q HS notable ETOH intake history, as noted treating for acute withdrawal and qHS trazodone in addition to PRN seroquel. Will benefit from CM evaluation and [facility] to transition to outpatient counseling and psych evaluation. (6) Normocytic Anemia, Chronic: Notes recent evaluation per his PCP w/ confirmation Fe deficiency anemia as well as vitamin B 12 deficiency with recent start on supplementation. Will obtain additional folic acid level. (7) Hx ?PUD versus Gastric Ulcer: Notes history ~ 1 year prior ulcer, maintain on protonix and carafate added especially given baby ASA usage as noted. (8) Hypertension: Continue home regimen including lisinopril, add low-dose Coreg, PRN hydralazine. VTE prophylaxis: Lovenox. GI prophylaxis: PPI po. He is full code. Disposition: Home in 1 day. Follow up with [facility]. Code Visit Inpatient E&M: 38325 Subs Hosp L2
--- NOTE | 2017-08-09 19:30 | PN_ITS ---
Patient Problems: Active and Suspected Problems Atypical chest pain (Acute) Troponin level elevated (Acute) Alcohol withdrawal (Acute) Subjective: Patient is feeling well. He is awake, ambulating. CIWA=0. - Physical Exam General: Alert, Oriented x3, Well developed HEENT: Atraumatic, PERRLA, Normocephalic Oral: Moist Mucosa Neck: Supple, No JVD, Negative Carotid Bruits Lungs: Clear to auscultation, Normal air movement, No rhonchi, No wheeze, No rales Cardiovascular: Regular rate, Regular Rhythm, Normal S1, Normal S2, No murmurs, No Ectopic Activity Abdomen: Bowel Sounds Present, Soft, Non Tender, Non-Distended, No Hepato- splenomegaly Extremities: No clubbing, No cyanosis, No edema Skin: No rashes, No breakdown Musculoskeletal: No Tenderness to Palpation of Joints or Extremities, No Muscle Wasting Lymphatic: No Cervical, Supraclavicular, or Inguinal Adenopathy Neurological: Cranial nerves II-XII grossly intact, Neuro grossly intact, - - No tremor Psych/Mental Status: Flat Affect - Physical Exam Vital Signs Temp Pulse Resp BP Pulse Ox 98.4 F 62 16 117/60 95 08/09/17 14:25 08/09/17 15:17 08/09/17 14:25 08/09/17 14:25 08/09/17 14:25 Oxygen Delivery Method Room Air Weight: 213 lb 6.519 oz Body Mass Index (BMI) 31.5 Intake and Output for Last 24 Hours 08/07/17 08/08/17 08/09/17 23:59 23:59 23:59 Intake Total 1766 / 1766 1097 / 1097 Output Total 0 / 0 Balance 1766 / 1766 1097 / 1097 Diagnostic Data Liver Ultrasound 08/08/17 05:55 IMPRESSION: 1. Heterogeneous hepatomegaly with small right hepatic cyst. No evidence of focal lesion. 2. Gallbladder polyp as above. 3. Hyperechoic mid right renal region concerning for nonobstructing nephrolith as above. Electronically Signed: Silvestre Hough DO at 9:21 EDT , Service support , Medical Necessity - Tobacco Use Smoking Status: Never smoker Tobacco Use: Non-smoker Assessment/Plan Active and Suspected Problems Atypical chest pain (Acute) Troponin level elevated (Acute) Alcohol withdrawal (Acute) The patient is a 52 y/o M w/ PMHx: Obesity, EtOH Abuse (3 tall boys q HS), PUD versus Gastric Ulcer, Insomnia, Hypertension, Iron Deficiency Anemia, Vitamin B12 deficiency who presents to the [facility] ED on 08/08/17 with history of onset EtOH withdrawal symptoms with last intake 08/07/17 AM with nausea, tremors, agitation , tactile disturbances in addition to onset at ~ 8 pm on evening prior to ED presentation central chest burning sensation, heaviness w/ radiation to BL neck and BL UE regions with associated dyspnea, diaphoresis, nausea without emesis and also vague headache. (1) Chest Pain: Serial enzymes were negative. He underwent pharmacological myocardial perfusion scan, which was negative. Chest pain symptoms possibly from GI origin. Add PPI po for probable alcoholic gastritis. He has marginally elevated troponin of unclear significance, which has been stable around 0.11 to 0.13. (2) Acute EtOH Withdrawal: Patient upon ED presentation noted interest in EtOH withdrawal treatment, last intake AM prior to day of presentation w/ noted usually 3 tall boys q HS secondary to his insomnia. Will urine for drug screen, will initiate and continue on [facility] service protocol with taper course of librium as needed Seroquel, Catapres, Bentyl, Vistaril, IV fluids, IV antiemetics, Tylenol as needed for pain. Once patient clinically improved and completion of taper nearing will plan [facility] assistance for transition to next level of rehabilitation care. Mag, phos pending. Maintain on CIWA protocol. (3) Elevated LFTs. patient reports recent diagnosis of cirrhosis. US of liver in 08/08 showed increased heterogeneous echogenicity with hepatomegaly. Portal vein has hepatopetal, that is normal flow. He may have underling cirrhosis, but fatty liver may be more consistent with hepatomegaly. He has some degree of hepatic insufficiency, as evident by elevated PT/PTT, but he has normal albumin. (4) Hyperglycemia: Admission glucose 121, HgbA1c pending. (5) Insomnia: Notes the reason for his q HS notable ETOH intake history, as noted treating for acute withdrawal and qHS trazodone in addition to PRN seroquel. Will benefit from CM evaluation and [facility] to transition to outpatient counseling and psych evaluation. (6) Normocytic Anemia, Chronic: Notes recent evaluation per his PCP w/ confirmation Fe deficiency anemia as well as vitamin B 12 deficiency with recent start on supplementation. Will obtain additional folic acid level. (7) Hx ?PUD versus Gastric Ulcer: Notes history ~ 1 year prior ulcer, maintain on protonix and carafate added especially given baby ASA usage as noted. (8) Hypertension: Continue home regimen including lisinopril, add low-dose Coreg , PRN hydralazine. VTE prophylaxis: Lovenox. GI prophylaxis: PPI po. He is full code. Disposition: Home in 1 day. Follow up with [facility]. Code Visit Inpatient E&M: 31477 Subs Hosp L2
[2017-08-09] MEDS: Atorvastatin Calcium 80 MG Tablet PO (22:23)
[2017-08-09] MEDS: traZODone 50 MG Tablet PO (22:23)
[2017-08-09] MEDS: 0.9% NaCl Peripheral Flush Adult/Peds IV (22:29)
[2017-08-10] VITALS (7 sets, daily range): BP systolic 98–147; BP diastolic 57–80; PULSE 58–67; RESP 14–18; TEMP 36.6–37; O2SAT 94–98
[2017-08-10] MEDS: Acetaminophen 500 MG Tablet PO ×3 (02:23→10:30)
[2017-08-10] MEDS: chlordiazePOXIDE 25 MG Capsule PO ×2 (02:34→15:52)
[2017-08-10] MEDS: Sucralfate 1 GM Tablet PO ×3 (06:29→15:53)
--- NOTE | 2017-08-10 07:01 | NURSING ---
This RN reviewed charting completed by clinical nursing coordinator Rachel and agrees with charting.
[2017-08-10] MEDS: Folic Acid 1 MG Tablet PO (07:58)
[2017-08-10] MEDS: Multivitamins,Ther W-Minerals Tablet 1 TABLET PO (07:58)
[2017-08-10] MEDS: Thiamine Hydrochloride 100 MG Tablet PO (07:58)
[2017-08-10] MEDS: Aspirin E.C. 81 MG Tablet PO (08:01)
--- NOTE | 2017-08-10 09:58 | CASEMGMT ---
Addendum entered by Arminda Treadwell 08/10/17 15:08: Crystal from [facility] is on her way to the hospital to see patient. Arminda ERNANDEZ Original Note: Addendum entered by Arminda Treadwell 08/10/17 13:11: Lexie Wills from [employer] [facility] came to talk with patient. He is interested in individual treatment instead of group so she is going to have someone from [facility] come and do an assessment. She is currently waiting on a return call from [facility]. Arminda ERNANDEZ Original Note: SW spoke with patient this am. Discussed resources SW had for him and his significant other. Discussed [facility] [employer]. Patient said he would still like to talk with [facility]. SW called Lexie Wills from [facility] [employer] and she said they will come and see patient. Arminda ERNANDEZ
[2017-08-10] MEDS: Carvedilol 3.125 MG TABLET PO (10:21)
[2017-08-10] MEDS: Pantoprazole Sodium 40 MG Tablet PO (10:21)
[2017-08-10 11:10] LABS: Hep B Surface Antibodies Non Reactive (.)
--- NOTE | 2017-08-10 14:52 | DS.PCM_ITS ---
Discharge Date and Diagnosis Date of Admission: 08/08/17 Date of Discharge: 08/10/17 - Primary Discharge Diagnosis Active and Suspected Problems Atypical chest pain (Acute) Troponin level elevated (Acute) Alcohol withdrawal (Acute) - Secondary Discharge Diagnosis Chronic Problems Alcohol abuse (Chronic) HTN (hypertension) (Chronic) Anemia (Chronic) CL (cirrhosis of liver) (Chronic) Gastric ulcer (Chronic) Insomnia (Chronic) Hospital Course and Treatment Imaging Results: Clinical Impression(s) from Imaging Studies Liver Ultrasound 08/08/17 05:55 IMPRESSION: 1. Heterogeneous hepatomegaly with small right hepatic cyst. No evidence of focal lesion. 2. Gallbladder polyp as above. 3. Hyperechoic mid right renal region concerning for nonobstructing nephrolith as above. Electronically Signed: Silvestre Hough DO at 9:21 EDT , Service support , None Operations: None Procedures: Stress test Summary of Care Provided: The patient is a 52 year old M with past medical history of obesity, alcohol abuse, peptic ulcer disease, chronic insomnia, hypertension, anemia and vitamin B12 deficiency was admitted on 08/08/2017 with history of alcohol withdrawal symptoms with his last alcohol intake being 08/07/2017. Patient also complained of chest pain which was central, burning sensation with heaviness that has started on the evening prior to admission. He describes his chest pain is radiation to bilateral neck and bilateral upper extremities with associated dyspnea and diaphoresis and nausea without emesis and headache. Patient was admitted to the telemetry bed, his troponins were trended and were all negative. He underwent a stress test which was negative. It was felt the patient's symptoms came from his GI and was started on PPI. Patient was found to be in alcohol withdrawal and was started on the Librium taper protocol and managed on the [facility] protocol. Continue to improve, found to have elevated LFTs for which ultrasound of the liver showed increased heterogenicity with hepatomegaly suggestive of fatty liver and cirrhosis. Patient was strongly advised not to drink alcohol and follow up with [facility] in the outpatient. He describes having chronic insomnia and would benefit from having a sleep study to further delineate the etiology of his insomnia. This will be conveyed to his primary care attending to have a sleep study arranged for him in the outpatient. Discharge Diet: Low fat/ Low Cholesterol, 2000 mg Sodium Diet Discharge Activity: Return to Normal Activity Home Medications: Medications to take at Discharge Activated Charcoal [Charcoal] 200 mg PO DAILY 08/07/17 Ferrous Sulfate 325 mg PO DAILY@0800 08/07/17 Cyanocobalamin [Vitamin B12] 1,000 mcg IM Q30D 08/08/17 Garlic 100 mg PO DAILY 08/08/17 [place]-3 Fatty Acids [Fish Oil] 500 mg PO DAILY 08/08/17 Amoxicillin [Amoxil] 500 mg PO Q8H #15 cap 08/10/17 Lisinopril [Prinivil] 5 mg PO DAILY #30 tab 08/10/17 Following Prescrptions Were Given to Patient: Amoxicillin [Amoxil] 500 mg PO Q8H #15 cap Lisinopril [Prinivil] 5 mg PO DAILY #30 tab Primary Care Physician: Nestor Whitfield MD [Primary Care Provider] - Please follow up with your Primary Care Physician in: within 2 weeks When: Follow-up with the [facility] program. Disposition: Home Minutes spent on discharge:: 25 Patient Condition:: Stable Medical Necessity - Tobacco Use Smoking Status: Never smoker Tobacco Use: Non-smoker Meaningful Use Info Meaningful Use Diagnoses (Choose all that apply): None applicable Code Visit OBSV E&M: 48041 Observation care discharge
--- NOTE | 2017-08-10 14:52 | DCINST_ITS ---
- Discharge Diagnoses Current Active Problems: Current Active and Chronic Problems Atypical chest pain (Acute) Troponin level elevated (Acute) Alcohol withdrawal (Acute) Alcohol abuse (Chronic) HTN (hypertension) (Chronic) Anemia (Chronic) CL (cirrhosis of liver) (Chronic) Gastric ulcer (Chronic) Insomnia (Chronic) Reason(s) for Visit for Discharge Instructions: chest discomfort, alcoho, withdrawal You will use the following diet at home:: Regular Your food should be the consistency of: Regular Your liquids should be the consistency of: Regular/Thin Discharge Activity: Return to Normal Activity Additional Instructions: You are strongly advised to avoid alcohol. Follow-up with the [facility] program in the outpatient. You have been prescribed a 5 day course of antibiotics. You are encouraged to complete these medications. Allergies/Adverse Reactions: Allergies No Known Allergies Allergy (Verified 08/07/17 22:39) Medications to take at Discharge Activated Charcoal [Charcoal] 200 mg PO DAILY 08/07/17 Ferrous Sulfate 325 mg PO DAILY@0800 08/07/17 Cyanocobalamin [Vitamin B12] 1,000 mcg IM Q30D 08/08/17 Garlic 100 mg PO DAILY 08/08/17 [place]-3 Fatty Acids [Fish Oil] 500 mg PO DAILY 08/08/17 Amoxicillin [Amoxil] 500 mg PO Q8H #15 cap 08/10/17 Lisinopril [Prinivil] 5 mg PO DAILY #30 tab 08/10/17 The following prescriptions were given: Lisinopril [Prinivil] 5 mg PO DAILY #30 tab Primary Care Physician: Nestor Whitfield MD [Primary Care Provider] - Please follow up with your Primary Care Physician in: within 2 weeks When: Follow-up with the [facility] program. Proposed Discharge Date: 08/10/17
== END 2017-08-10 17:02 | disposition home or self-care (01) | DRG 143 ==
LOC: ED 08-08 00:20 → PCU 08-08 01:47
PROVIDERS: Admitting Provider Family Medicine; Emergency Provider Emergency Medicine; Family Provider Family Medicine; PCP Family Medicine; Visit Provider Internal Medicine
DX: R07.89 Other chest pain (principal); F10.239 Alcohol dependence with withdrawal, unspecified; K74.60 Unspecified cirrhosis of liver; I10 Essential (primary) hypertension; D50.9 Iron deficiency anemia, unspecified; G47.00 Insomnia, unspecified; K21.9 Gastro-esophageal reflux disease without esophagitis; R79.89 Other specified abnormal findings of blood chemistry; D64.9 Anemia, unspecified; Y90.0 Blood alcohol level of less than 20 mg/100 ml
CPT/HCPCS: 36415; 76705; 78452; 80048; 80053; 80061; 80307; 80320; 81001; 82330; 82746; 83036; 83735; 84100; 84484; 85025; 85610; 85730; 86704; 86705; 86706; 86708; 86709; 86803; 87340; 93005; 93017; 99284; A9500; J7030; J7050; J7120; A4216; G0480; J2405; J2785

== ENCOUNTER → 2017-08-25 20:20 | Outpatient (CLI) | payer MEDICAID, SELFPAY | PROVIDERS: Family Provider Family Medicine; PCP Family Medicine; Visit Provider Family Medicine | DX: G47.33 Obstructive sleep apnea (adult) (pediatric) (principal) | CPT/HCPCS: 95810 ==

== ENCOUNTER → 2017-09-23 21:05 | Outpatient (CLI) | payer MEDICAID, SELFPAY | PROVIDERS: Family Provider Family Medicine; PCP Family Medicine; Visit Provider Family Medicine | DX: G47.33 Obstructive sleep apnea (adult) (pediatric) (principal) | CPT/HCPCS: 95811 ==

== ENCOUNTER → 2017-12-24 13:40 | Outpatient (CLI) | payer SELFPAY | LOC: SL 13:41 | PROVIDERS: Family Provider Family Medicine; PCP Family Medicine; Visit Provider Internal Medicine Critical Care Medicine | DX: Z46.89 Encounter for fitting and adjustment of other specified devices (principal) | CPT/HCPCS: 98960; G0463 ==